=== PATIENT | female | born 1930 | race Caucasian/White ===

== ENCOUNTER → 2016-08-08 | Outpatient (CLI) | payer OTHER, MEDICARE ==
[~2016-08-08] MED LIST: ADVIL; APAP500 PO; BIOTIN5 MG PO; CALCIUM +D & M1 EAC1 PO; CALCIUM 600 +1 EAC1 PO; CALCIUM 600 MG1 EAC3 PO; CALCIUM PO; CARAFATE 11 GM/10 M1 PO; CARAFATE1 GM/10 ML PO; CITRACAL PLUS1 EACH PO; COZAAR 50 MG TA50 M1 PO; CRANBERRY200 MG PO; DONEPEZIL HCL 55 M1 PO; FIBER350 GM PO; FOSAMAX 70 MG T70 M1 PO; HYDROCODON-ACE1 EAC7 PO; HYDROCODONE-AP1 EAC6 PO; IBUPROFEN 200200 M1 PO; IBUPROFEN200 M2 PO; LOSARTAN-HCTZ1 EACH PO; MIRALAX255 GM; MIRALAX255 GM PO; MULTIVITAMINS; MULTIVITAMINS1 EAC7 PO; NAMENDA XR28 MG PO; NORCO 5-325 TA1 EACH; NORCO 5-325 TA1 EACH PO; OCUVITE TABLET1 EAC1 PO; OXYCODONE-ACET1 EACH PO; PERCOCET 5-3251 EACH PO; PERCOCET PO; PRILOSEC40 MG PO; SERTRALINE HCL50 MG PO; TRAMADOL 50 MG50 MG PO; TRIAMTERENE-HC1 EAC1 PO; VITAMIN A10000 UNI3; VITAMIN C120 GM; VITAMIN E100 M1; ZOLOFT 50 MG TA50 M1 PO
== END ==
LOC: RAD 11:23
DX: Z12.31 Encounter for screening mammogram for malignant neoplasm of breast (principal)

== ENCOUNTER → 2017-10-02 | Outpatient (CLI) | payer OTHER, MEDICARE ==
[~2017-10-02] MED LIST changes: +ASPIR 8181 MG PO; +HAIR SKIN NAIL1 EACH PO; +HAIR, SKIN AND1 EAC1 PO; +OCUVITE EYE HE1 EACH PO; +PROBIOTIC1 EAC1 PO; +PROTONIX40 M1 PO; +TRAZODONE HCL50 MG PO; +VITAMIN D2000 UNIT PO; +WOMEN MULTIVIT1 EACH PO
== END ==
LOC: RAD 09:04
DX: Z12.31 Encounter for screening mammogram for malignant neoplasm of breast (principal)

== ENCOUNTER → 2017-12-05 | Outpatient (CLI) | payer OTHER, MEDICARE ==
[~2017-12-05] VITALS: Ht 160 cm; Wt 60.8 kg
[~2017-12-05] MED LIST changes: -HAIR SKIN NAIL1 EACH PO; -OCUVITE EYE HE1 EACH PO; -WOMEN MULTIVIT1 EACH PO
--- NOTE | ~2017-12-05 | P ---
[facility] [place] [address] PROCEDURE REPORT Name: MIHAI CALDERA Room #: REG [facility]#: [id number] Admission: 12/05/17 Attend Phys: Pasha Ty MD Discharge: Date of : 31 Report #: [id number] THIS REPORT FOR: //name// CC: Pasha Alanis BRIEF HISTORY: The patient is an 87-year-old woman for recurrent dysphagia. She was last dilated with good results about 2 years ago. She has been experiencing solid food dysphagia for about 2 months. She has no difficulty swallowing liquids. PREOPERATIVE DIAGNOSIS: Recurrent solid food dysphagia. POSTOPERATIVE DIAGNOSES: 1. Tertiary contractions consistent with presbyesophagus. 2. Large duodenal diverticulum, second portion of duodenum. MEDICATIONS: Deep sedation with propofol per anesthesia. SPECIMEN: None. ESTIMATED BLOOD LOSS: None. PROCEDURE: EGD and Guaman dilation. FINDINGS: Prior to propofol sedation, procedure of upper endoscopy and dilation was reviewed with the patient as well as potential risks and its complications. She indicates she understands and desires to proceed. DESCRIPTION OF PROCEDURE: With the patient in left lateral decubitus position, the [employer] video endoscope was inserted in the cervical esophagus under direct vision without difficulty. Examination of this organ in its entire length revealed normal esophageal mucosa. I did not see any strictures or mass lesions or obstructing lesions. However, intermittently tertiary contractions were seen. These were noted on her previous exam. A significant hiatus hernia was not seen. There was no evidence of Payan mucosa. The scope was advanced into the stomach, which was examined on end view as well as retroflexed views. Examination of the stomach, through its entire length revealed normal mucosa. It was noted on her last exam 2 years ago there was retained food in the stomach. There was no retained food seen today. She denies symptoms of early satiety. Upon retroflexion, no mass lesions were seen. The pylorus was normal. Duodenal bulb was normal. She was noted to have a large diverticulum and second portion of duodenum was filled with food debris. I was able to pass the scope beyond the diverticulum into the third portion of duodenum, which was normal. There was no evidence of obstructing lesions. At that point, the scope was slowly withdrawn and careful circumferential views confirmed the above [facility] [address] [place] [address] PROCEDURE REPORT Name: MIHAI CALDERA [facility] [id number] Admission: 12/05/17 Attend Phys: Pasha Ty MD Discharge: Date of : 31 Report #: [id number] findings. The patient tolerated the procedure well. Following procedure, she was dilated with passage of a 50-Burkinan Guaman dilator as we have done in the past. No resistance was encountered. CONDITION OF THE PATIENT UPON DISCHARGE: Following procedure, the patient drowsy. She will be discharged home when fully ambulatory. INSTRUCTIONS TO THE PATIENT AND FAMILY AT THE TIME OF DISCHARGE: No mucosal abnormalities were identified. A definite stricture was not seen. She likely has presbyesophagus as the cause of her dysphagia. She has benefited from dilation and had good results for nearly 2 years after the last dilation. She is to return as needed for dilation based on symptoms of dysphagia. However, at some point in time, she may lose benefit from dilation. She will return to care of Dr. Lg Alanis, return to see me as needed. <ELECTRONICALLY SIGNED> By: Pasha Ty MD 12/06/17 1709 0943 [id number] Pasha Ty MD /nt
== END | disposition home or self-care (01) ==
LOC: GI 07:34
DX: K22.8 Other specified diseases of esophagus (principal); K57.10 Diverticulosis of small intestine without perforation or abscess without bleeding; I10 Essential (primary) hypertension; K21.9 Gastro-esophageal reflux disease without esophagitis; F41.9 Anxiety disorder, unspecified; F32.9 Major depressive disorder, single episode, unspecified; Z87.891 Personal history of nicotine dependence; Z98.890 Other specified postprocedural states; Z90.49 Acquired absence of other specified parts of digestive tract; Z96.651 Presence of right artificial knee joint; Z96.611 Presence of right artificial shoulder joint; Z88.8 Allergy status to other drugs, medicaments and biological substances; Z79.82 Long term (current) use of aspirin; Z79.899 Other long term (current) drug therapy
CPT/HCPCS: 62110; 62900

== ENCOUNTER → 2018-01-17 | Outpatient (CLI) | payer OTHER, MEDICARE ==
[~2018-01-17] VITALS: Ht 160 cm; Wt 59.0 kg
[~2018-01-17] MED LIST changes: +HAIR SKIN NAIL1 EACH PO; +OCUVITE EYE HE1 EACH PO; +WOMEN MULTIVIT1 EACH PO
--- NOTE | ~2018-01-17 | P ---
[facility] [place] [address] PROCEDURE REPORT Name: MIHAI CALDERA Room #: REG [facility]#: [id number] Admission: 01/17/18 Attend Phys: Pasha Ty MD Discharge: Date of : 31 Report #: [id number] THIS REPORT FOR: //name// CC: Pasha Alanis MD BRIEF HISTORY: The patient is an 87-year-old woman with a recent change in bowel habits. PREOPERATIVE DIAGNOSIS: Change in bowel habits. POSTOPERATIVE DIAGNOSES: 1. Diminutive polyp, cecum. 2. Flat polyp, proximal transverse colon, biopsied. 3. 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 MEDICATIONS: Deep sedation with propofol per Anesthesia. SPECIMEN: 1. Cecal polyp. 2. Biopsies flat polyp, proximal transverse colon. ESTIMATED BLOOD LOSS: 3 mL. PROCEDURE: Colonoscopy to cecum and terminal ileum with biopsy. FINDINGS: Prior to propofol sedation, procedure of colonoscopy was discussed with the patient as well as potential risks and its complications. She indicates she understands and desires to proceed. DESCRIPTION OF PROCEDURE: With the patient in left lateral decubitus position, digital examination was completed which revealed no abnormalities. Subsequently, the [employer] video colonoscope was introduced into the rectum and advanced under direct vision to the cecum. Done with minimal difficulty. The cecum was identified by the ileocecal valve and the appendiceal orifice. I was able to advance the scope to the mouth of the ileocecal valve but due to angulation, we could not cross the ileocecal valve. I could see villi in the mouth of the ileocecal valve. At that point, the scope was slowly withdrawn and careful circumferential views obtained including retroflexing the scope in the ascending colon. As we withdrew the scope, the prep was good, the mucosa was within normal limits, normal vascular pattern, normal light reflex. Within the cecum, a diminutive polyp was seen and removed by biopsy. The scope was further withdrawn and occasional diverticulum was seen in the proximal colon. There was no endoscopic evidence of diverticulitis. Scope was further withdrawn and in the proximal transverse colon, there was a flat polyp. It was extremely difficult to see as it was very flat and we could only see it because of the [facility] [address] [place] [address] PROCEDURE REPORT Name: MIHAI CALDERA Room #: REG [facility]#: [id number] Admission: 01/17/18 Attend Phys: Pasha Ty MD Discharge: Date of : 31 Report #: [id number] change in color of the lesion. It was difficult to see all the margins, but it was felt to be at least 2 cm in greatest dimension and possibly a little larger and possibly draping over a fold. There was a slight indentation to central portion of the polyp. Multiple biopsies were obtained. Multiple biopsies were obtained. Also, tattoo echeverria were placed on the lateral aspect of the polyp. Scope was further withdrawn and no additional polypoid lesions were seen. She was noted to have moderate to severe diverticular disease in sigmoid colon without endoscopic evidence of diverticulitis. Scope was withdrawn in the rectum. Upon retroflexion, no abnormalities were seen. Hemorrhoids were not seen. Scope was withdrawn. In addition, I pointed out that her anal tone on digital rectal examination was fair. The patient tolerated the procedure well. CONDITION OF THE PATIENT UPON DISCHARGE: Following this, the patient drowsy. She will be discharged home when fully ambulatory. INSTRUCTIONS TO THE PATIENT AND FAMILY AT THE TIME OF DISCHARGE: The patient's concern is change in bowel habits and also periods of incontinence. I do not see any obstructing lesions on exam today. I think her major problem is constipation. We will have her use a fiber product on a daily basis, also use a probiotic. She does use MiraLax periodically and suggest she use it on a more regular basis so she has stools more frequently. At time, she goes up to a week. If she still has symptoms, she is to return to see us in followup in the office. As for the polyps, the flat polyp is worrisome. We will follow up on biopsies. If there is evidence of malignancy, she may require surgical intervention. Another consideration would be endoscopic mucosal dissection of an early cancer if that is present. If this is simply an adenoma, we will discuss options with the patient including observation versus attempts to treat the polyp potentially with a resection and/or fulguration of lesion. <ELECTRONICALLY SIGNED> By: Pasha Ty MD 01/23/18 1122 1005 193 Pasha Ty MD /nt
--- NOTE | ~2018-01-17 | PATH ---
[facility] [address] [address] PATHOLOGY RPT PROCEDURE Name: ESTHER CALDERA Room #: REG JOCEL[facility] Hollins.#: [id number] Admission: 01/17/18 Date of : 31 Discharge: Report #: [id number] Path Case #: [id number] [facility] Accession Number: [id number] . 01 Material submitted: . PART A: CECAL POLYP BIOPSY PART B: PROXIMAL TRANSVERSE COLON FLAT POLYP BIOPSIES . 01 Clinical history: . Pre-OP DX: Change in bowel habits Post-OP DX: Colon/cecal polyps, diverticulosis . 02 Diagnosis: A. Colonic mucosa "cecal polyp biopsy": - Tubular adenoma. - There is no evidence of high-grade dysplasia or malignancy. . B. Colonic mucosa "proximal transverse colon polyp biopsies": - Fragments of inflamed tubular adenomas. - There is no evidence of high-grade dysplasia or malignancy. (SHA:lisa; 01/20/2018) QTP/01/20/2018 . 02 Electronically signed: . Chris Massey MD, Pathologist NPI- [id number] . 01 Gross description: . A. Received in formalin labeled "Esther Caldera, cecal polyp," are 2 segments of hernandez soft tissue measuring 0.8 x 0.2 x 0.2 cm in aggregate dimensions and ranging from 0.2 to 0.5 cm in maximum dimension. The specimen is submitted entirely in cassette A1. . B. Received in formalin labeled "Esther Caldera, proximal transverse flat polyp biopsies," are 6 segments of hernandez soft tissue measuring 1.8 x 0.7 x 0.3 cm in aggregate dimensions and ranging from 0.2 to 0.4 cm in maximum dimension. The specimen is submitted entirely in cassette B1. (TSD; 01/17/2018) TOB/TOB . 02 Pathologist provided ICD-10: D12.0, D12.3 . 02 CPT . 184087, [id number] Performed at: 01 [place] [address] PATHOLOGY RPT PROCEDURE Name: ESTHER CALDERA Room #: REG [facility]..#: [id number] Admission: 01/17/18 Date of : 31 Discharge: Report #: [id number] Path Case #: [id number] [address] [id number] MD Evan Dan MD Phone: [phone] Performed at: [address], [place], [place] [id number] MD Angelika Yañez MD Phone: [phone]
== END ==
LOC: GI 07:35
DX: D12.0 Benign neoplasm of cecum (principal); D12.3 Benign neoplasm of transverse colon; K57.30 Diverticulosis of large intestine without perforation or abscess without bleeding; K21.9 Gastro-esophageal reflux disease without esophagitis; G62.9 Polyneuropathy, unspecified; F32.9 Major depressive disorder, single episode, unspecified; Z88.8 Allergy status to other drugs, medicaments and biological substances; Z79.82 Long term (current) use of aspirin; Z79.899 Other long term (current) drug therapy; Z87.891 Personal history of nicotine dependence; Z98.890 Other specified postprocedural states; Z90.49 Acquired absence of other specified parts of digestive tract; Z90.89 Acquired absence of other organs; Z96.611 Presence of right artificial shoulder joint; Z96.651 Presence of right artificial knee joint; Z86.718 Personal history of other venous thrombosis and embolism; Z86.711 Personal history of pulmonary embolism
CPT/HCPCS: 62110; 62900

== ENCOUNTER → 2018-03-05 | Outpatient (CLI) | payer OTHER, MEDICARE | LOC: ULTRA 15:40 | DX: M79.89 Other specified soft tissue disorders (principal); M79.661 Pain in right lower leg; M79.662 Pain in left lower leg ==

== ENCOUNTER → 2018-09-11 | Outpatient (CLI) | payer OTHER, MEDICARE ==
[2018-09-11 13:19] LABS: ABSOLUTE NEUTROPHILS 3.5 thou/uL (1.4-8.2); BASOPHILS 1.2 % (0.0-2.0); EOSINOPHILS 1.9 % (0.0-3.0); HEMATOCRIT 41.3 % (37.0-47.0); HEMOGLOBIN 13.5 gm/dL (12.0-15.0); LYMPHOCYTES 22.9 % (24.0-44.0); MCH 28.1 pg (26.0-34.0); MCHC 32.8 g/dL (28.0-37.0); MCV 85.7 fL (80.0-100.0); MONOCYTES 8.8 % (1.0-8.0); PLATELET COUNT 214 thou/uL (150-400); POLYS 65.2 % (36.0-66.0); RBC 4.82 mil/uL (4.20-5.00); WBC 5.4 thou/uL (4.0-11.0)
[2018-09-11 13:36] LABS: ALBUMIN 4.1 g/dL (3.4-5.0); CALCIUM 9.5 mg/dL (8.5-10.1); CREATININE 0.8 mg/dL (0.6-1.0); POTASSIUM 3.7 mmol/L (3.5-5.1); TOTAL BILIRUBIN 0.9 mg/dL (<0.1-1.0); TOTAL PROTEIN 7.1 g/dL (6.4-8.2)
== END ==
LOC: RAD 12:54
PROVIDERS: Family Medicine
DX: M41.86 Other forms of scoliosis, lumbar region (principal); R07.9 Chest pain, unspecified; R06.02 Shortness of breath; Z96.611 Presence of right artificial shoulder joint

== ENCOUNTER → 2018-10-14 | Outpatient (CLI) | payer OTHER, MEDICARE | LOC: RAD 01:36 | DX: Z12.31 Encounter for screening mammogram for malignant neoplasm of breast (principal) ==

== ENCOUNTER 2019-07-27 12:55 | Inpatient (IN) | payer OTHER, MEDICARE ==
[~2019-07-27] VITALS: Ht 160 cm; Wt 54.9 kg
[2019-07-27 13:18] VITALS: BP 193/77
[2019-07-27 13:50] LABS: ABSOLUTE NEUTROPHILS 4.1 thou/uL (1.4-8.2); BASOPHILS 1.3 % (0.0-2.0); EOSINOPHILS 1.6 % (0.0-3.0); HEMATOCRIT 40.7 % (37.0-47.0); HEMOGLOBIN 13.4 gm/dL (12.0-15.0); LYMPHOCYTES 14.3 % (24.0-44.0); MCH 28.1 pg (26.0-34.0); MCHC 32.9 g/dL (28.0-37.0); MCV 85.4 fL (80.0-100.0); MONOCYTES 9.6 % (1.0-8.0); PLATELET COUNT 237 thou/uL (150-400); POLYS 73.2 % (36.0-66.0); RBC 4.77 mil/uL (4.20-5.00); RDW 15.9 % (10.5-14.5); WBC 5.6 thou/uL (4.0-11.0)
[2019-07-27 13:53] LABS: ANION GAP 11 mmol/L (7-16); BUN 7 mg/dL (7-18); CALCIUM 9.8 mg/dL (8.5-10.1); CHLORIDE 100 mmol/L (98-107); CO2 27 mmol/L (21-32); CREATININE 0.8 mg/dL (0.6-1.0); GLUCOSE 91 mg/dL (74-106); POTASSIUM 3.3 mmol/L (3.5-5.1); SODIUM 138 mmol/L (136-145)
[2019-07-27 14:03] LABS: DIRECT BILIRUBIN 0.2 mg/dL (<0.1-0.2); SGOT 22 U/L (15-37); SGPT 19 U/L (30-65); TOTAL BILIRUBIN 0.9 mg/dL (<0.1-1.0); TOTAL PROTEIN 7.4 g/dL (6.4-8.2); TROPONIN-I <0.06 ng/mL (<0.06)
--- NOTE | 2019-07-27 15:07 | EKG ---
[place] [address] [facility] [place] [address] ELECTROCARDIOGRAM REPORT Name: MIHAI CALDERA HEMA Room #: REG [facility]#: [id number] Admission: 07/27/19 Attend Phys: Discharge: Date of : 31 Report #: [id number] THIS REPORT FOR: //name// [facility] ED Test Date: 2019-07-27 Test Time: 14:03:46 Pat Name: MIHAI CALDERA Department: Room: Gender: F Security Team Lead: GURDEEP : 1930 Requested By: Stephanie Lindquist Order Number: [id number] MD: Torey Olvera Measurements Intervals [place] Rate: 77 P: 63 LA: 168 QRS: 46 QRSD: 128 T: 56 QT: 438 QTc: 496 Interpretive Statements Sinus rhythm Nonspecific intraventricular conduction delay Borderline T abnormalities, anterior leads Compared to ECG 07/06/2012 10:07:19 Intraventricular conduction delay now present T-wave abnormality now present Electronically Signed On 07-27-2019 15:07:21 TRANSFER PUMPER by Torey Olvera [email or web address] <ELECTRONICALLY SIGNED> By: Torey Olvera MD 07/27/19 1507 1403 140 Torey Olvera MD /LONG
[2019-07-27 15:12] LABS: URINE BILIRUBIN NEGATIVE (Negative); URINE BLOOD NEGATIVE (Negative); URINE CLARITY CLEAR; URINE COLOR YELLOW; URINE GLUCOSE-RANDOM* NEGATIVE (Negative); URINE KETONES TRACE (Negative); URINE PROTEIN (DIPSTICK) NEGATIVE (Negative); URINE UROBILINOGEN 0.2 E.U./dl (0.2-1.0)
[2019-07-27 15:13] LABS: URINE LEUKOCYTES-REFLEX 3+ (Negative); URINE NITRITE-REFLEX POSITIVE (Negative)
[2019-07-27 15:58] LABS: SQUAMOUS 0-3 Few /LPF (0-3)
[2019-07-27 15:59] LABS: BACTERIA-REFLEX >30 Many /HPF (None Seen); CASTS None Seen /LPF (None Seen); CRYSTALS None Seen /LPF (None Seen); URINE RBC None Seen /HPF (0-2); URINE WBC-REFLEX 6-15 Few /HPF (0-5); WBC CLUMPS Few (None Seen)
[2019-07-27 16:40] VITALS: BP 157/79
[2019-07-27 16:58] VITALS: BP 157/78
--- NOTE | 2019-07-27 18:34 | NUR ---
PT ADMITTED FROM ED TO 453. A&OX4.IV INTACT IN L UA. INCONT OF BLADDER D/T URGENCY. ORIENTED PT TO ROOM/CALL LIGHT. IV NS @ 200/HR STARTED THAT WAS ORDERED IN ED. CALL LIGHT W/I REACH, BED ALARM IS ON.
[2019-07-27 19:42] VITALS: BP 152/69
[2019-07-28 00:09] VITALS: BP 149/64
--- NOTE | 2019-07-28 03:42 | NUR ---
ASSUMED CARE OF PT AT 1900HRS. PT IS AOX4 AND LETS NEEDS BE KNOWN. FALL PRECAUTION IN PLACE. PT HAS STRESS INCONTINENCE. PT WAS PLACE ON EXTERNAL FEMALE CATH AND IT'S WORKING WELL. PT WAS ABLE TO GET COMFORTALE AND SLEEP PART OF THE SHIFT. VSS AND NO S/S OF ACUTE DISTRESS. WILL CONTINUE TO MONITOR.
[2019-07-28 07:30] VITALS: BP 180/87
[2019-07-28 09:30] VITALS: BP 143/58
[2019-07-28 09:57] LABS: CALCIUM 9.3 mg/dL (8.5-10.1); CREATININE 0.8 mg/dL (0.6-1.0); POTASSIUM 3.1 mmol/L (3.5-5.1)
--- NOTE | 2019-07-28 11:48 | NUR ---
Received awake on bed. Due medications given as prescribed, able to swallow meds w/o difficulty. A+O. On room air. On regular diet- tolerating well; no nausea, no vomiting and no abdominal pain noted. With external lenz in place- output measured and recorded. Assisted in ADLs. Visited by relative today. With Ns + 20meqs of KCL at 80cc/hr, infusing well at L AC. Turned to her sides regularly. Falls bundle in place. Assisted in ADLs. Pt seen by Dr Alanis today- for PT/OT evaluation today, possible Home with HH oR SNF.
[2019-07-28 15:15] VITALS: BP 141/62
[2019-07-28 15:30] VITALS: BP 136/64
--- NOTE | 2019-07-28 15:49 | NUR ---
PT ADMITTED RELATED TO UTI; MARILY. CM REVIEWED CHART AND SPOKE WITH CARE TEAM. C MET WITH PT AND DTR AT BEDSIDE THIS DAY. PT INDICATED SHE LIVES ALONE IN A DUPLEX WITH NO STEPS TO ENTER AND NO STEPS INSIDE. 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 PT INDICATED SHE HAD HH IN THE PAST [facility]. PT INDICATED SHE HAD BEEN SKILLED AT [facility] AND [facility] IN THE PAST. CARE TEAM ARE AWAITING THEREAPY MICHAEL ALFARO DETERMINE IS PT NEEDS HOME WITH HH OR POST ACUTE CARE STAY. CM TO FOLLOW INDICATED WITH DC PLANNING.
[2019-07-28 20:00] VITALS: BP 162/71
[2019-07-29 00:06] VITALS: BP 169/62
--- NOTE | 2019-07-29 03:17 | NUR ---
ASSUMED CARE OF PT AT 1900HRS. PT IS AOX4 AND LETS NEEDS BE KNOWN. FALL PRECAUTION IN PLACE. ABX TREATMENT CONTINUED. PT WAS INCT THIS SHIFT AND WAS CLEANED AND CHANGED SEVERAL TIMES. PT HAS AN ELEVATED BP. PT WAS ABLE TO GET COMFORTABLE AND SLEEP PART OF THE SHIFT. PT PROGRESSING TOWARDS DC GOALS. WILL CONTINUE TO MONITOR.
[2019-07-29 07:10] VITALS: BP 158/81
--- NOTE | 2019-07-29 10:33 | NUR ---
DISCHARGE PLANNING. ANTICIAPTED DISCHARGE IN ONE TO TWO DAYS. POST ACUTE RECOMMENDED AT DISCHARGE. PATIENT REFERRAL FAXED [facility], PER REQUEST. CALL PLACED TO [facility]. VOICEMAIL LEFT FOR [facility] ADMISSIONS. UNIT SW AWARE. FOLLOWING.
--- NOTE | 2019-07-29 10:34 | NUR ---
REJI ATTEMPTED TO VISIT WITH PT THIS AM BUT SHE WAS SLEEPING. REJI CALLED HER DTR ADRIANNE AND SHE INDICATED THAT THEY WOULD LIKE REFERRAL SENT TO [facility] FOR REVIEW FOR POSSIBLE ADMISSION. REJI WAS NOTIFIED THAT PT IS TO BE TRANSFERED TO [facility] ON SS THIS DAY. CM TO FOLLOW INIDCATED WITH DC PLANNING.
--- NOTE | 2019-07-29 11:15 | NUR ---
PT A&OX4, VSS, DENIES PAIN. CHANGES ARE BEING MADE TO ANTIBIOTICS, AWAITING NEW ORDERS. PATIENT TRANFER TO SERNIOR SUITS. NO SIGNS OF DISTRESS. REPORT GIVEN TO SENIOR SUITES. FAMILY CALLED BY SYRUP BLENDER
--- NOTE | 2019-07-29 14:17 | NUR ---
PT IS AOX4, VSS, NO C/O. PT IS UP IN THE RECLINER, CALL LIGHT/PERSONAL ITEMS IN REACH. PT IN GOOD SPIRITS, WILL CONTINE TO MONITOR PT.
[2019-07-29 20:32] VITALS: BP 164/83
--- NOTE | 2019-07-30 02:58 | NUR ---
PT IS A&OX4. PT HAS NO IV SITE. PT TOOK SCHEDULED MEDICATION WITH NO PROBLEM. PT IS A SBA TO THE CAMODE. BRIEF IS SOAKED WHEN THE PT CALLS TO GET UP TO THE CAMODE. PT PREFERS TO KEEP A POISE LINER AND A DEPEND ON. I TOLD THE PT THAT IT WOULD BE BEST TO NOT WEAR A BRIEF BECAUSE HER SITTING IN THE MOISTURE CAN CAUSE SKIN BREAKDOWN. PT WAS ASLEEP AND HAD A MOMENT OF SCREAMING IN HER SLEEP. PT SLEPT THOUGHOUT THE NIGHT. WILL CONTINUE TO MONITOR.
[2019-07-30 08:00] VITALS: BP 166/79
--- NOTE | 2019-07-30 15:35 | NUR ---
ANGELINE reviewed chart and spoke with nursing and attending physician. Pt was transferred to from 4 and is progressing towards goals for discharge. Discharge to [facility] SN[facility] is anticipated for tomorrow. ANGELINE met with pt at bedside to discuss discharge plan. Pt states she is hoping to go home with HH services tomorrow. However, pt is agreeable with going to [facility] SN[facility] if attending physician feels it is needed. [facility] with [facility]. ANGELINE is following to assist as needed with discharge planning.
[2019-07-30 16:38] VITALS: BP 127/73
[2019-07-30 19:29] VITALS: BP 153/83
--- NOTE | 2019-07-30 23:47 | NUR ---
ASSUMED PT CARE APPROX 1905. PT IS A&OX4. PT HAS NO IV ACCESS. PT TAKES SCHEDULED MEDICATION. PT DENIES PAIN. PT HAS NO SKIN ISSUES. PT DOES LIKE TO WEAR A BRIEF. I HAVE EDUCATED THE PT ABOUT THE RISK OF WEARING A BRIEF AND HAVING INCONTINENCE. PT IS A FALL RISK. PT CALLS OUT APPROPRIATELY. PT USES THE WALKER TO GET TO THE BSC. ONCE SLEEP THE PT TALKS/ SCREAMS IN HER SLEEP. PT IS NOW LSLEEP IN HER ROOM. WILL CONTINUE TO MONITOR.
[2019-07-31 09:09] VITALS: BP 144/75
--- NOTE | 2019-07-31 10:15 | NUR ---
DISCHARGE NOTE: ANGELINE reviewed chart and spoke with nursing and attending physician. Pt is medically stable for discharge today. SW met with pt at bedside to discuss discharge plan. Pt states she is agreeable with going to [facility] for a skilled stay prior to returning home. SW had faxed HH referral to [facility]. ANGELINE updated HH liaison, that pt is going to a skilled facility. Awaiting final discharge orders/summary at this time. Chart will need to be copied. digital media planner to coordinate transportation and notify family when discharge ppwk is available. SW is available to assist should needs arise.
[2019-07-31] MEDS ORDERED: DOXYCYCLINE HYC50 MG PO (12:17)
[2019-07-31] MEDS ORDERED: NORVASC5 MG PO (12:18)
--- NOTE | 2019-07-31 15:28 | NUR ---
PT IS AOX4, VSS, NO C/O PAIN. PT UP AD ANNELIESE WITH STANDBY ASSIST. PT TOLERATING DIET WELL. IV DC'D, PT DISCHARGED BACK TO [facility]. CALLED TO GIVE REPORT TO NURSE PALMA. PT TRANSFERRED VIA [facility].
== END 2019-07-31 15:36 | DRG 683 ==
LOC: ER 12:55 → 4W 15:47 → EROBS 15:47 → 4W 16:58 → 4N 07-29 11:59
PROVIDERS: Emergency Medicine; ADMIT Family Medicine
DX: N17.9 Acute kidney failure, unspecified (principal); N39.0 Urinary tract infection, site not specified; Z96.611 Presence of right artificial shoulder joint; Z96.651 Presence of right artificial knee joint; K21.9 Gastro-esophageal reflux disease without esophagitis; E87.6 Hypokalemia; K59.00 Constipation, unspecified; B96.1 Klebsiella pneumoniae [K. pneumoniae] as the cause of diseases classified elsewhere; I10 Essential (primary) hypertension; Z90.49 Acquired absence of other specified parts of digestive tract; Z86.711 Personal history of pulmonary embolism; Z98.82 Breast implant status; Z88.8 Allergy status to other drugs, medicaments and biological substances; Z87.891 Personal history of nicotine dependence; Z79.899 Other long term (current) drug therapy
CPT/HCPCS: 10040; 10091